=== PATIENT | male | born 2000 | race Caucasian/White ===

== ENCOUNTER 2020-02-12 15:03 | Emergency (ER) | payer SELFPAY ==
[~2020-02-12] VITALS: Ht 198.1 cm; Wt 91.0 kg
[2020-02-12 15:03] VITALS: BP 126/64
--- NOTE | 2020-02-12 15:08 | NUR ---
SYDNIA FROM HOME C/O SI (NO PLAN AT THIS TIME, DENIES HI). PT STATES HE "FLIPS A SWITCH WHEN IT COMES TO HIS MOM & LIVING WITH HER. PT JUST WANTS TO LIVE AWAY FROM HER (BUT DOES NOT HAVE THE MEANS TO LIVE ON HIS OWN)." HX DEPRESSION/SA BY DROWNING, DC'D FROM [facility] 10DAYS AGO, PT COMBATIVE WITH [facility] ON ARRIVAL TO HOME & RESISTED CARE BY LOCKING HIMSELF IN THE BATHROOM, [facility] CALLED AND PLACED PT ON L2K PRIOR TO TRANSPORT, PT IS ANXIOUS & MOSTLY COOPERATIVE WITH STAFF BUT NOT COMBATIVE. PT CHANGED INTO GOWN, ALL PERSONAL BELONGINGS IN BAG X1 & PLACED IN BIN #40 IN LOCKER, PT IN SAFE ENVIRONMENT, SITTER IN VIEW. PT UNABLE TO VOID AT THIS TIME.
--- NOTE | 2020-02-12 15:25 | NUR ---
PT TEARFUL IN ROOM, PT REFUSED TO ANSWER QUESTIONS OR SPEAK WITH THIS RN WHEN ASKED WHAT THE MATTER WAS, PT LAID ON SHIMONNEY PULLING MASK OVER HIS EYES.
[2020-02-12] MEDS ORDERED: PROZAC (15:35)
[2020-02-12] MEDS ORDERED: ADHD MED (15:35)
--- NOTE | 2020-02-12 16:01 | NUR ---
PT RESTLESS AND PACING IN ROOM AT TIMES, REDIRECTED NOT TO BOTHER/SHAKE IV POLE ON AINSLEY, PT STATES "WELL, I'M BORED, WHAT ELSE DO YOU EXPECT?', PT COOPERATED WITH REDIRECTION BACK ONTO AINSLEY, NAD, PT REMAINS IN SAFE ENVIRONMENT, SITTER IN VIEW.
[2020-02-12 16:10] LABS: BASOPHILS # (AUTO) 0.03 x10^3/uL (0-0.3); BASOPHILS % (AUTO) 0 % (0-1); EOSINOPHILS # (AUTO) 0.05 x10^3/uL (0-0.8); EOSINOPHILS % (AUTO) 1 % (1-7); LYMPHOCYTES # (AUTO) 1.79 x10^3/uL (1-6.1); LYMPHOCYTES % (AUTO) 26 % (22-44); MD NO; MEAN CORPUSCULAR HEMOGLOBIN 31.8 pg (27.5-34.5); MEAN CORPUSCULAR HGB CONC 33.4 g/dL (33.2-36.2); MEAN CORPUSCULAR VOLUME 95.3 fL (81-97); MEAN PLATELET VOLUME 8.7 fL (7.4-10.4); MONOCYTES % (AUTO) 9 % (2-9); NEUTROPHILS # (AUTO) 4.56 x10^3/uL (1.8-8.0); NEUTROPHILS % (AUTO) 65 % (42-75); PLATELET COUNT 216 x10^3/uL (130-400); RED BLOOD COUNT 5.13 x10^6/uL (4.38-5.82); RED CELL DISTRIBUTION WIDTH 12.6 % (9.4-14.8)
[2020-02-12 16:18] LABS: ALBUMIN 3.9 g/dL (3.4-5.0); ANION GAP 6 mmol/L (5-15); CALCIUM 9.2 mg/dL (8.5-10.1); CHLORIDE 108 mmol/L (98-107)
[2020-02-12 16:32] LABS: ALANINE AMINOTRANSFERASE 18 U/L (12-78); ALKALINE PHOSPHATASE 92 U/L (45-117); CREATININE 1.07 mg/dL (0.7-1.3); TOTAL PROTEIN 7.7 g/dL (6.4-8.2)
[2020-02-12 16:33] LABS: SALICYLATE LEVEL < 1.7 mg/dL (2.8-20.0)
[2020-02-12 16:52] LABS: FREE T4 (FREE THYROXINE) 1.18 ng/dL (0.76-1.46)
--- NOTE | 2020-02-12 17:00 | NUR ---
PT SITTING ON GURNEY WATCHING TV, CALM & COOPERATIVE AFTER MEAL TRAY GIVEN & TV TURNED ON, REFUSED ANXIOLYTIC AT THIS TIME, NAD, COMFORT MEASURES PROVIDED, PT REMAINS IN SAFE ENVIRONMENT, SITTER IN VIEW.
--- NOTE | 2020-02-12 17:59 | NUR ---
PT LAYING ON GURNEY WATCHING TV, CALM & COOPERATIVE, RESPONDS APPROP TO STAFF, NAD, COMFORT MEASURES PROVIDED, PT REMAINS IN SAFE ENVIRONMENT, SITTER IN VIEW, AWAITING PSYCH FINANCIAL WRITER CONSULT.
--- NOTE | 2020-02-12 18:10 | NUR ---
PSYCH MICROBIOLOGICAL ANALYST (KEVIN) AT BS.
[2020-02-12 18:45] LABS: AMPHETAMINE SCREEN, URINE Negative (Negative); BARBITURATE SCREEN, URINE Negative (Negative); BENZODIAZEPINE SCREEN, URINE Negative (Negative); CANNABINOID SCREEN, URINE Positive (Negative); COCAINE SCREEN, URINE Negative (Negative); METHADONE SCREEN, URINE Negative (Negative); OPIATE SCREEN, URINE Negative (Negative)
--- NOTE | 2020-02-12 18:53 | NUR ---
REPORT GIVEN TO MARY
== END 2020-02-12 19:00 | disposition home or self-care (01) ==
LOC: ED 16:03
DX: F90.9 Attention-deficit hyperactivity disorder, unspecified type (principal); F32.9 Major depressive disorder, single episode, unspecified; F12.10 Cannabis abuse, uncomplicated; R45.851 Suicidal ideations; F17.210 Nicotine dependence, cigarettes, uncomplicated; Z72.9 Problem related to lifestyle, unspecified
CPT/HCPCS: 36415; 80053; 80307; 84439; 84443; 84481; 85025; 99283; 99406